=== PATIENT | male | born 1990 | race Two or more races ===

== ENCOUNTER 2021-05-10 22:32 | Emergency (ER) | payer MEDICAID ==
[~2021-05-10] VITALS: Ht 182.9 cm; Wt 74.8 kg
[2021-05-10] MEDS ORDERED: LEVE1000 PO (22:45)
[2021-05-10 23:06] LABS: HEMATOCRIT 40.6 % (36.7-47.1); MEAN CORPUSCULAR HEMOGLOBIN 27.9 uug (23.8-33.4); MEAN CORPUSCULAR VOLUME 83.7 fL (73.0-96.2); PLATELET COUNT (AUTO) 236 K/uL (152-348)
[2021-05-10 23:11] LABS: ETHANOL < 3 MG/DL (0-0)
[2021-05-10 23:16] LABS: ALANINE AMINOTRANSFERASE 18 U/L (16-63); ALKALINE PHOSPHATASE 96 U/L (50-136); ASPARTATE AMINOTRANSFERASE 16 U/L (15-37); BILIRUBIN,DIRECT 0.1 mg/dL (0.0-0.2); BILIRUBIN,TOTAL 0.3 mg/dL (0.2-1.0); CARBON DIOXIDE 29 mmol/L (21-32); CHLORIDE 105 mmol/L (98-107); GLUCOSE 87 mg/dL (74-106); POTASSIUM 3.3 mmol/L (3.5-5.1); TOTAL PROTEIN, SERUM 7.2 g/dL (6.4-8.2); UREA NITROGEN, BLOOD 12 mg/dL (7-18)
[2021-05-10] MEDS ORDERED: IV NORMAL SALINE 1000 ML BAG IV ONE (23:45)
--- NOTE | 2021-05-11 01:00 | NUR ---
Patient is resting comfortably in bed with eyes closed, no acute distress noted.
--- NOTE | 2021-05-11 02:00 | NUR ---
Patient is resting comfortably in bed with eyes closed, no acute distress noted.
[2021-05-11 02:40] VITALS: BP 110/68
--- NOTE | 2021-05-11 02:40 | NUR ---
Note flower in EDM - 05/11/21 at 0300 by EDDA Patient discharged to home in stable condition. Written and verbal after care instructions given. Patient verbalizes understanding of instructions. Stressed follow up or return to ER for worsening s/s. Patient ambulates with steady gait, IV line removed, V/S stable, and left with all personal belongings.
--- NOTE | 2021-05-11 02:40 | NUR ---
Patient discharged to home in stable condition. Written and verbal after care instructions given. Patient verbalizes understanding of instructions. Stressed follow up or return to ER for worsening s/s. Patient ambulates with steady gait, IV line removed, V/S stable, and left with all personal belongings. Patient discharged into care of family member.
== END 2021-05-11 02:40 | disposition home or self-care (01) ==
LOC: ER 22:34
DX: G40.909 Epilepsy, unspecified, not intractable, without status epilepticus (principal); E87.2 Acidosis; S06.890S Other specified intracranial injury without loss of consciousness, sequela; S02.91XS Unspecified fracture of skull, sequela; W34.00XS Accidental discharge from unspecified firearms or gun, sequela; G93.89 Other specified disorders of brain
CPT/HCPCS: 36415; 70450; 71045; 83605; 85025; 93005; G0480; J7030